=== PATIENT | female | born 1930 | race Caucasian/White ===

== ENCOUNTER 2018-03-02 00:02 | Emergency (ER) | payer MEDICARE ==
[~2018-03-02] VITALS: Ht 147.3 cm; Wt 38.6 kg
[~2018-03-02 00:02] MED LIST: AMLO-511 PO; ASCO500 PO; DOCU250C91 PO; LISI-662 PO; LORA0.5T2 PO; MULT1CAP32 PO; TEMA30 PO
[2018-03-02] MEDS ORDERED: CLOP75 PO (00:16)
[2018-03-02] MEDS ORDERED: LORazepam 1 MG TABLET PO ONE (03:00)
[2018-03-02] MEDS ORDERED: ACETAMINOPHEN 325 MG TABLET PO ONE (03:00)
[2018-03-02 03:03] VITALS: BP 170/80
== END 2018-03-02 03:22 | disposition home or self-care (01) ==
LOC: EMS 00:03
DX: S20.212A Contusion of left front wall of thorax, initial encounter (principal); I10 Essential (primary) hypertension; F41.9 Anxiety disorder, unspecified; Z79.899 Other long term (current) drug therapy; W01.0XXA Fall on same level from slipping, tripping and stumbling without subsequent striking against object, initial encounter; Y93.89 Activity, other specified; Y92.89 Other specified places as the place of occurrence of the external cause; Y99.8 Other external cause status
CPT/HCPCS: 71101; 99284